=== PATIENT | female | born 1955 | race African-American/Black ===

== ENCOUNTER 2022-11-04 04:10 | Day surgery (SDC) | payer OTHER ==
[2022-11-02 15:50] VITALS: BMI 24.9
[2022-11-04 10:11] VITALS: PULSE 73
[2022-11-04 10:40] VITALS: BP 120/61; RESP 15; TEMP 98
== END 2022-11-04 12:35 | disposition home or self-care (01) ==
LOC: JASU-ENDO 04:10
PROVIDERS: ATTEND Internal Medicine Gastroenterology
PROC: 0DJD8ZZ Inspection of Lower Intestinal Tract, Via Natural or Artificial Opening Endoscopic (ICD-10-PCS; principal; 2022-11-04 09:30)
DX: Z12.11 Encounter for screening for malignant neoplasm of colon (principal); K64.8 Other hemorrhoids
CPT/HCPCS: 82962